=== PATIENT | female | born 1970 | race Caucasian/White ===

== ENCOUNTER 2017-09-06 21:21 | Emergency (ER) | payer OTHER ==
[~2017-09-06] VITALS: Ht 172.7 cm; Wt 61.2 kg
[2017-09-06 21:32] VITALS: Ht 172.7 cm; Wt 61.2 kg
[2017-09-06 22:12] VITALS: BP 135/101
== END 2017-09-06 22:13 | disposition other institution (70) ==
LOC: ED 21:21
DX: L30.9 Dermatitis, unspecified (principal); J45.909 Unspecified asthma, uncomplicated